=== PATIENT | male | born 1970 | race Caucasian/White ===

== ENCOUNTER → 2022-08-27 13:03 | Outpatient (CLI) | payer OTHER, SELFPAY ==
--- NOTE | 2022-08-27 13:13 | XR_ITS ---
FINAL REPORT CLINICAL HISTORY: RT lower SIDED CHEST PAIN heard a popping after leaning over the bathtub this weekend FINDINGS: PA and lateral views of the chest are obtained. There is no prior exam for comparison. The cardiac and mediastinal silhouettes are within normal limits. The lungs are clear. There is no pleural effusion, pneumothorax, or acute osseous abnormality. IMPRESSION: No radiographic evidence of acute cardiac or pulmonary disease. Reviewed, Interpreted and Dictated by Eliana Davila MD Transcribed by Mohini Bai Authenticated and [facility]
--- NOTE | 2022-08-27 13:13 | XR_ITS ---
FINAL REPORT CLINICAL HISTORY: RT SIDED CHEST PAIN hear popping after leaning over the bathtub this weekend FINDINGS: RIGHT RIBS Three views of the right ribs show no fractures. There is no pneumothorax or pleural fluid collection. IMPRESSION: No right rib fracture. No pneumothorax. Reviewed, Interpreted and Dictated by Eliana Davila MD Transcribed by Mohini Bai Authenticated and [facility]
== END ==
PROVIDERS: Visit Provider Surgery
DX: R07.89 Other chest pain (principal)
CPT/HCPCS: 71046; 71100